=== PATIENT | male | born 1995 | race Caucasian/White ===

== ENCOUNTER 2020-12-23 22:42 | Emergency (ER) | payer BC, SELFPAY ==
[2020-12-23 22:49] VITALS: BP 159/105; PULSE 100; RESP 20; TEMP 36.4; O2SAT 100
--- NOTE | 2020-12-24 00:07 | PC.NURSE ---
iv initiated, labs collected as ordered. Unable to void at present.
[2020-12-24 00:10] LABS: Basophils Percent Auto 0.3 % (0.2-1.2); Eosinophils Absolute Auto 0.2 K/mm3 (0-0.3); Eosinophils Percent Auto 2.2 % (0-4.4); Hemoglobin 15.3 g/dL (14.0-18.0); Immature Granulocyte Absolute 0.03 K/mm3 (0.00-0.031); Immature Granulocyte Percent A 0.3 % (0-0.5); Lymphocytes Absolute Auto 1.88 K/mm3 (0.9-3.2); Mean Corpuscular Hemoglobin 30.3 pg (26-34); Mean Corpuscular Volume 89.1 fl (80-100); Mean Platelet Volume 9.6 fl (7.4-10.4); Monocytes Absolute Auto 0.9 K/mm3 (0.1-0.6); Monocytes Percent Auto 8.4 % (2.6-8.5); Neutrophils Percent Auto 71.8 % (45.5-73.1); Platelet Count Result 315 k/mm3 (150-375); Red Blood Count 5.05 M/mm3 (4.6-6.20); White Blood Count 11.1 K/mm3 (4.5-10.0)
--- NOTE | 2020-12-24 00:13 | ED.GIBLEED ---
HPI - GI Bleed General Chief complaint: GI Bleed Stated complaint: possible hemorroid Time Seen by Provider: 12/23/20 23:31 Source: patient and RN notes reviewed Mode of arrival: ambulatory Limitations: no limitations History of Present Illness HPI Narrative: This is a 24 year old male who presents for evaluation of blood in his stool. He states earlier in the day he developed diffuse abdominal cramping with an urge to deficate. He states afterwards he had a loose bowel movement. He states he saw a streak of blood in his stool and he also noted blood on his toilet. He also reports after having a bowel movement he felt lower abdominal and rectal pressure. He states his pain last approximately an hour. He denies having any pain now. He denies fever, chills, nausea, vomiting. He denies recent antibiotic use. He states he came to ER because his PCP is out of town for 3 weeks. He does not take anticoagulation. Related Data Allergies Allergy/AdvReac Type Severity Reaction Status Date / Time Sulfa (Sulfonamide Allergy Unknown RASH Verified 09/03/16 16:15 Antibiotics) Review of Systems Review of Systems: All systems reviewed & are unremarkable except as noted in HPI and below PMFSH Past Medical History Medical History (Updated 12/24/20 @ 00:50 by Mili Morales MD) ADHD Surgical History Surgical History (Updated 12/24/20 @ 00:17 by Mili Morales MD) Hx of tonsillectomy Social History Social History (Updated 12/24/20 @ 00:17 by Mili Morales MD) Smoking status: Never smoker Exam Const: General: no acute distress and alert Orientation/consciousness: patient oriented x3 Eyes: EOM: EOMs intact bilaterally Resp: Effort & Inspection: normal respiratory effort and no retractions Auscultation: clear to auscultation bilaterally Cardio: Rate: regular rate Rhythm: regular rhythm Heart sounds: no murmurs GI: GI Palp: Yes Soft to palpation, No Tenderness to palpation present (GI) and No Guarding due to palpation present (GI) Auscultation: normal bowel sounds Other: no external hemorrhoids noted, guaic negative Skin: General skin exam: normal color Rashes: no rashes Neuro: General: patient oriented x3, moves all extremities and CN's II-XI intact bilaterally Psych: Mental Status: mental status grossly normal Affect: normal affect Course Reevaluation(s) Reevaluation #1: I discussed with patient since he has no abdominal pain or tenderness no further evaluation in ER needed. I discussed no significant abnormalities. He will follow up with PCP for possible GI referral. Date: 12/24/20 Time: 00:48 Vital Signs Vital signs: Vital Signs Temperature 97.5 F L 12/23/20 22:49 Pulse Rate 100 12/23/20 22:49 Respiratory Rate 20 12/23/20 22:49 Blood Pressure 159/105 H 12/23/20 22:49 Pulse Oximetry 100 12/23/20 22:49 Temperature 97.5 F L 12/24/20 01:00 Pulse Rate 98 12/24/20 01:00 Respiratory Rate 20 12/24/20 01:00 Blood Pressure 160/90 H 12/24/20 01:00 Pulse Oximetry 100 12/24/20 01:00 MDM - GI Bleed Lab Data Attestation: I reviewed the patient's lab results. Result diagrams: 12/23/20 23:56 12/23/20 23:56 Labs: Lab Results 12/23/20 12/23/20 12/24/20 Range/Units 23:56 23:56 00:20 WBC 11.1 H (4.5-10.0) K/mm3 RBC 5.05 (4.6-6.20) M/mm3 Hgb 15.3 (14.0-18.0) g/dL Hct 45.0 (42.0-52.0) % MCV 89.1 (80-100) fl MCH 30.3 (26-34) pg MCHC 34.0 (32-36) g/dl RDW 12.0 (11.5-14.5) % Plt Count 315 (150-375) k/mm3 MPV 9.6 (7.4-10.4) fl Immature Gran % (Auto) 0.3 (0-0.5) % Neut % (Auto) 71.8 (45.5-73.1) % Lymph % (Auto) 17.0 L (18.3-44.2) % [place] % (Auto) 8.4 (2.6-8.5) % Eos % (Auto) 2.2 (0-4.4) % Baso % (Auto) 0.3 (0.2-1.2) % Lymph # (Auto) 1.88 (0.9-3.2) K/mm3 [place] # (Auto) 0.9 H (0.1-0.6) K/mm3 Eos # (Auto) 0.2 (0-0.3) K/mm3 Baso # (Auto) 0
[2020-12-24 00:18] LABS: Alanine Aminotransferase 31 U/L (4-50); Albumin Level 4.5 g/dL (3.5-5.1); Alkaline Phosphatase 52 U/L (38-126); Anion Gap 8 mmol/L (8-16); Aspartate Amino Transferase 35 U/L (17-59); Bilirubin,Total 0.2 mg/dL (0.2-1.3); Blood Urea Nitrogen 12 mg/dL (9-20); Calcium 9.4 mg/dL (8.4-10.2); Carbon Dioxide 28 mmol/L (22-30); Chloride 105 mmol/L (98-107); Estimated CRCL calculation 152 ml/min; Estimated Glomerular Filt Rate > 60; Glucose 103 mg/dL (75-110); Lipase 99 U/L (23-300); Potassium 3.8 mmol/L (3.4-5.0); Sodium 141 mmol/L (137-145)
[2020-12-24 00:33] LABS: Add Urine Microscopic? YES; Amorphous Sediment Urine Few; Appearance Urine Cloudy (Clear); Bilirubin Urine Negative (Negative); Blood Urine Negative (Negative); Color Urine Yellow (Yellow); Glucose Urine UA Negative (Negative); Ketones Urine Negative (Negative); Leukocyte Esterase Ur Negative LEU/UL (Negative); Mucus Urine Rare /lpf; Nitrate Urine Negative (Negative); Protein Urine 1+ mg/dL (Negative); Specific Grav Ur 1.029 (1.001-1.035); Urobilinogen Urine Negative mg/dL (<2.0)
[2020-12-24 01:00] VITALS: BP 160/90; PULSE 98; RESP 20; TEMP 36.4; O2SAT 100
== END 2020-12-24 01:01 | disposition home or self-care (01) ==
PROVIDERS: Emergency Provider General Practice; PCP Physician Assistant
DX: K92.1 Melena (principal); F90.9 Attention-deficit hyperactivity disorder, unspecified type
CPT/HCPCS: 36415; 80053; 81001; 83690; 85025; 99283